=== PATIENT | female | born 1975 | race Hispanic/Latino ===

== ENCOUNTER 2016-11-01 10:23 | Outpatient (CLI) | payer OTHER ==
--- NOTE | 2016-11-01 12:07 | Ultrasound Report ---
BILATERAL DIAGNOSTIC DIGITAL MAMMOGRAM WITH CAD AND TARGETED LEFT BREAST ULTRASOUND: HISTORY: Left breast pain. FINDINGS: Comparison studies are dated May 26, 2016 and December 02, 2015. Bilateral implants are intact. The overlying parenchyma is heterogeneously dense. A few, stable benign-appearing calcifications are present. No mass or architectural distortion is seen. Specific attention was given to the area of clinical symptoms in the left breast. Evaluation of the area of interest in the left breast by ultrasound demonstrates 2 small lymph nodes, one in the axilla and the other at the 3:00 position. These have benign features. No other focal findings are seen. IMPRESSION: No suspicious findings. Small intramammary and axillary lymph nodes are noted. BI-RADS CATEGORY: 2 = Benign ACR BI-RADS MAMMOGRAPHIC CODES: 0 = Needs additional imaging evaluation; 1 = Negative; 2 = Benign; 3 = Probably benign; 4 = Suspicious; 5 = Malignant; 6 = Known biopsy-proven malignancy COMMENT: 1. Dense breast tissue, i.e., adenosis, fibrocystic changes, etc., may obscure an underlying neoplasm. 2. Approximately 10% of cancers are not detected with mammography. 3. A negative mammography report should not delay biopsy if a clinically suspicious mass is present. RECOMMENDATION: Annual screening.
== END 2016-11-01 10:24 | disposition home or self-care (01) ==
LOC: SPVWC 10:23
PROVIDERS: ATTEND Nurse Practitioner
DX: N64.4 Mastodynia (principal); R92.1 Mammographic calcification found on diagnostic imaging of breast; Z98.82 Breast implant status
CPT/HCPCS: 76642; G0204; 77066

== ENCOUNTER 2017-12-18 12:32 | Outpatient (CLI) | payer OTHER ==
--- NOTE | 2017-12-19 14:32 | Mammography Report ---
BILATERAL DIGITAL AUGMENTED SCREENING MAMMOGRAM with CAD: 12/18/17 12:32:00 CLINICAL: Routine screening. COMPARISON:11/01/16 FINDINGS: Screening views with and without implant displacement demonstrate heterogeneously dense breasts, which may obscure small masses. No mass, architectural distortion or suspicious calcifications. Intact subpectoral implants. IMPRESSION: No mammographic evidence of malignancy. BI-RADS CATEGORY: 2 -- Benign RECOMMENDATION: Routine mammographic screening in one year. ACR BI-RADS MAMMOGRAPHIC CODES: 0 = Needs additional imaging evaluation; 1 = Negative; 2 = Benign; 3 = Probably benign; 4 = Suspicious; 5 = Malignant; 6 = Known biopsy-proven malignancy COMMENT: 1. Dense breast tissue, i.e., adenosis, fibrocystic changes, etc., may obscure an underlying neoplasm. 2. Approximately 10% of cancers are not detected with mammography. 3. A negative mammography report should not delay biopsy if a clinically suspicious mass is present. COMMENT: Patient follow-up letters are generated via our [employer] application.
== END 2017-12-18 12:33 | disposition home or self-care (01) ==
LOC: SPVWC 12:32
PROVIDERS: ATTEND Obstetrics & Gynecology
DX: Z12.31 Encounter for screening mammogram for malignant neoplasm of breast (principal)
CPT/HCPCS: 77067

== ENCOUNTER 2018-12-19 15:08 | Outpatient (CLI) | payer OTHER ==
--- NOTE | 2018-12-20 08:49 | Mammography Report ---
IMPLANT MAMMOGRAM: Bilateral breast imaging was done with standard and displacement technique. The parenchymal is symmetrically seen ventral to each submuscular saline implant. The implant contours are smooth. No suspicious findings or secondary signs of malignancy are seen. No significant change identified when compared to exams dating back to 2017. CAD was utilized. CONCLUSION: Negative implant mammogram. RECOMMENDATION: Routine follow-up. BI-RADS CATEGORY: 1 = Negative ACR BI-RADS MAMMOGRAPHIC CODES: 0 = Needs additional imaging evaluation; 1 = Negative; 2 = Benign; 3 = Probably benign; 4 = Suspicious; 5 = Malignant; 6 = Known biopsy-proven malignancy COMMENT: 1. Dense breast tissue, i.e., adenosis, fibrocystic changes, etc., may obscure an underlying neoplasm. 2. Approximately 10% of cancers are not detected with mammography. 3. A negative mammography report should not delay biopsy if a clinically suspicious mass is present. COMMENT: Patient follow-up letters are generated in [employer].
== END 2018-12-19 15:09 | disposition home or self-care (01) ==
LOC: SPVWC 15:08
PROVIDERS: ATTEND Obstetrics & Gynecology
DX: Z12.31 Encounter for screening mammogram for malignant neoplasm of breast (principal)
CPT/HCPCS: 77067

== ENCOUNTER 2020-12-25 15:29 | Outpatient (CLI) | payer OTHER ==
--- NOTE | 2020-12-25 18:01 | Mammography Report ---
DIGITAL SCREENING MAMMOGRAM, 12/25/2020 CLINICAL INFORMATION / INDICATION: Routine screening mammography. SCREENING WITH AUG TECHNIQUE: Digital bilateral 2D mammography was obtained in the craniocaudal and mediolateral obliqu e projections. COMPARISON: Prior mammograms 12/19/2018 and 12/18/2017 FINDINGS: Breast Density: The breasts are heterogeneously dense, which may obscure small masses. No dominant mass, suspicious calcifications, or architectural distortion in either breast. There are bilateral retropectoral saline implants. There has been no significant change compared with the prior examinations. IMPRESSION: No mammographic evidence of malignancy. Follow up recommendation: Routine yearly BI-RADS Category 1: Negative. A "normal" or negative report should not discourage follow up or biopsy of a clinically significant f inding. A written summary of these findings will be mailed to the patient. The patient will be entered into a mammography reporting system which will generate a reminder letter for the patient's next appointmen t at the appropriate interval. The [employer] recommends yearly mammograms starting at age 40 and continuing as l josephine as a woman is in good health. Breast MRI is recommended for women with an approximate 20-25% or greater lifetime risk of breast cancer, including women with a strong family history of breast or ova jennifer cancer or who have been treated for Hodgkin's disease. Signer Name: Fawn Rendon MD Signed: 12/25/2020 5:56 PM Workstation Name: [email or web address]
== END 2020-12-25 15:30 | disposition home or self-care (01) ==
LOC: SPVWC 15:29
PROVIDERS: ATTEND Obstetrics & Gynecology
DX: Z12.31 Encounter for screening mammogram for malignant neoplasm of breast (principal); N64.89 Other specified disorders of breast
CPT/HCPCS: 77067

== ENCOUNTER 2022-03-15 14:37 | Outpatient (CLI) | payer OTHER ==
--- NOTE | 2022-03-16 09:25 | Mammography Report ---
DIGITAL SCREENING MAMMOGRAM WITH CAD, 03/15/2022 CLINICAL INFORMATION / INDICATION: Routine screening mammography. SCREENING MAMMO WITH BILATERAL IMPL ANTS Z12.31 TECHNIQUE: Digital bilateral 2D mammography was obtained in the craniocaudal and mediolateral obliqu e projections. This examination was interpreted with the benefit of Computer-Aided Detection analysis . COMPARISON: 12/25/2020. FINDINGS: Breast Density: The breasts are heterogeneously dense, which may obscure small masses. No dominant mass, suspicious calcifications, or architectural distortion in either breast. Benign-appearing right-sided nodule unchanged. Previous bilateral breast augmentation. IMPRESSION: No mammographic evidence of malignancy. Follow up recommendation: Routine yearly screening mammogram. BI-RADS Category 2: BENIGN. A "normal" or negative report should not discourage follow up or biopsy of a clinically significant f inding. A written summary of these findings will be mailed to the patient. The patient will be entered into a mammography reporting system which will generate a reminder letter for the patient's next appointmen t at the appropriate interval. The [employer] recommends yearly mammograms starting at age 40 and continuing as l josephine as a woman is in good health. Breast MRI is recommended for women with an approximate 20-25% or greater lifetime risk of breast cancer, including women with a strong family history of breast or ova jennifer cancer or who have been treated for Hodgkin's disease. Signer Name: Mc Johnston MD Signed: 03/16/2022 9:20 AM Workstation Name: [id number]
== END 2022-03-15 14:38 | disposition home or self-care (01) ==
LOC: SPVWC 14:37
PROVIDERS: ATTEND Obstetrics & Gynecology
DX: Z12.31 Encounter for screening mammogram for malignant neoplasm of breast (principal); N63.10 Unspecified lump in the right breast, unspecified quadrant
CPT/HCPCS: 77067